=== PATIENT | female | born 1980 ===

== ENCOUNTER 2017-08-02 06:12 | Day surgery (SDC) | payer OTHER ==
[2017-08-01 06:42] VITALS: BMI 33.2
[2017-08-02] MEDS ORDERED: Bupivacaine HCl 0.25% PF (10 ml) Inj ONE (07:55)
[2017-08-02] MEDS ORDERED: cefOXitin IV 2 gm in Dextrose 2 GM/50 ML BAG IVPB ONE (07:55)
[2017-08-02] MEDS ORDERED: Lactated Ringer's 1,000 ML IV ONE ×2 (08:10→10:10)
[2017-08-02] MEDS ORDERED: Propofol 10 mg/ml Inj (20 ML) ONE (08:16)
[2017-08-02] MEDS ORDERED: Midazolam 2 MG/2 ML VIAL ONE (08:16)
[2017-08-02] MEDS ORDERED: HYDROmorphone 0.5 mg/0.5 ml ISec IVP PRN (08:54)
[2017-08-02] MEDS ORDERED: Rocuronium 10 mg/ml (5 ml) ONE (09:46)
[2017-08-02] MEDS ORDERED: Neostigmine Methylsulfate 3mg/3ml Syringe IV ONE (10:39)
[2017-08-02] MEDS ORDERED: Oxycodone/Acetaminophen 5/325 mg Tab PO PRN ×2 (10:43→10:55)
[2017-08-02 13:27] VITALS: RESP 16
[2017-08-02 15:29] VITALS: BP 118/79; PULSE 76; TEMP 97.2; O2SAT 100
--- NOTE | 2017-08-04 23:51 | PCM.SURG1 ---
Surgeon's Initial Post Op Note - Surgeon's Notes Surgeon: Dr Reynolds Project Administrator: Geeta Quiñones( FP Resident ) Type of Anesthesia: General Endo Anesthesia Administered By: PADMINI Albright, Supervised by Dr Barnes Pre-Operative Diagnosis: Left ovarian Dermoid Cyst Operative Findings: Normal Sized Anteverted uterus. A 7.5X 4.5 X5cm multilocular dermoid cyst the contents ( proteinaceous material with hairs) of which opened during the the laparoscopic procedure. Both fallopian Tubes as well as the right ovary appeared normal in appearance.. IV Fluid Intake - 1000mls. EBL- 50mls. Urine output- 50mls Post-Operative Diagnosis: Same as Preop diagnosis Operation Performed: Laparoscopy with Left ovarian cystectomy Specimen/Specimens Removed: Ovarian Cyst with contents. Estimated Blood Loss: EBL {In ML}: 50 Post-Op Condition: Good Date of Surgery/Procedure: 08/02/17 Time of Surgery/Procedure: 10:00
--- NOTE | 2017-08-05 12:20 | OP ---
PROCEDURE DATE: 08/02/2017 PREOPERATIVE DIAGNOSIS: A 37-year-old female with persistent left dermoid cyst. POSTOPERATIVE DIAGNOSIS: A 37-year-old female with persistent left dermoid cyst. PROCEDURE: Laparoscopy with left ovarian cystectomy, performed on 08/02/2017. SURGEON: Adam Reynolds MD [employer]AL [employer] OPERATOR: Luca Narayanan MD; Macey Sierra, [facility] practice resident. Assistance to this procedure was needed for exposure of tissues and help in the conduct of the surgery. The assistants remained with the surgery throughout its entire length. TYPE OF ANESTHESIA: General endotracheal. ANESTHESIA ADMINISTERED BY: Natalee Engle CRNA, supervised by Cheryl Zendejas MD OPERATIVE FINDINGS: Normal sized anteverted uterus of 7.5 x 4.5 x 5 cm, multilocular dermoid cyst with proteinaceous material with hairs was identified on the left side. Both fallopian tubes as well as the right ovary appeared normal. IV FLUID INTAKE: 1000 mL. ESTIMATED BLOOD LOSS: 50 mL. URINE OUTPUT: 50 mL of clear urine. COMPLICATIONS: There were no complications. SPECIMEN: Taken for pathology were, left ovarian cyst with its contents. DESCRIPTION OF PROCEDURE: After obtaining informed consent, the patient was sent to the OR with IV running. The patient was placed in a supine position in the OR table and after general anesthesia, she was repositioned in the dorsal lithotomy position using João stirrups. The patient was then prepped and draped in the usual sterile fashion. The urinary bladder was drained with a straight cath with output of about 50 mL of clear urine. Posterior wall of the vagina was depressed using a weighted speculum and the anterior wall was elevated with an L-shaped retractor to expose the cervix, which was held with a single-tooth tenaculum. The uterine cavity was sounded to a depth of about 6 cm. The cervical canal was dilated and a HUMI uterine manipulator was inserted into the uterine cavity and secured with the air balloon attached to it. The other instruments were removed from the vagina after this and attention was turned onto the anterior abdominal wall, where a 5 mm incision was made in the umbilicus with a scarpel. After using the Marci clamps to open the incision,the abdominal wall was lifted with towel clips and a Veress needle introduced into the abdominal cavity. Correct placement of the veress needle was certified and the abdomen filled with carbon dioxide gas to a pressure of about 15mmHg. A 5 mm trocar and sleeve was inserted into the umbilical incision. After which, a laparoscope was introduced and the above findings noted. Two additional ports were made in the left and right lower quadrants, a 5 mm port in the left lower quadrant and a 10 mm in the right quadrant, being careful during the placement to avoid the blood vessels causing the anterior abdominal wall. Using a grasper and a 5 mm LigaSure device, the left adnexal dermoid cyst was identified and dissected. Clamping, cauterization and incision of the left adnexal tissues was undertaken till the dermoid cyst was finally removed. The cyst was multilocular and one of the locules opened up during the dissection to exit out proteinaceous material with hairs. The dissected tissues were collected from the operative site and was removed from the abdomen using an EndoCatch bag. Hemostasis was assured after the procedure using the cautery and a LigaSure to ensure hemostasis. The pelvis was irrigated with saline and then suctioned off after the procedure. Once the procedure has been completed and hemostasis has been noted, the carbon dioxide gas connection was disconnected and gas was let out of the abdominal cavity. The laparoscopic trocars and sleeves were then taken off from the anterior abdominal wall. The 10 mm incision was closed using Vicryl #2, making sure the fascia was reapproximated. The skin incisions in the 5 mm ports were closed using 4-0 Biosyn. All counts of instruments and gauze used were correct x3 and the patient was sent to the recovery room awake and in stable condition. Adam Reynolds MD [facility]
== END 2017-08-02 14:40 | disposition home or self-care (01) ==
LOC: C.SDS 06:12
PROVIDERS: ATTEND Obstetrics & Gynecology
DX: D36.7 Benign neoplasm of other specified sites (principal); D27.1 Benign neoplasm of left ovary
CPT/HCPCS: 58662; 88104; 88305; J0694; J1885; J2250; J2405; J2704; J2710; J3010; J7120